=== PATIENT | male | born 1980 | race Caucasian/White ===

== ENCOUNTER 2019-10-21 12:12 | Emergency (ER) | payer BC ==
[~2019-10-21] VITALS: Ht 188 cm; Wt 106.6 kg
[2019-10-21] MEDS ORDERED: HYDR50TA62 PO (12:32)
[2019-10-21] MEDS ORDERED: PROZOSIN (12:32)
[2019-10-21] MEDS ORDERED: QUET300T5 PO (12:32)
[2019-10-21] MEDS ORDERED: SUVO10TA PO (12:32)
[2019-10-21] MEDS ORDERED: ACET-73 PO (12:32)
[2019-10-21] MEDS ORDERED: QUET300T2 PO (12:32)
[2019-10-21] MEDS ORDERED: DOXE50CA4 PO (12:32)
[2019-10-21] MEDS ORDERED: TRAZ300T2 PO (12:32)
[2019-10-21] MEDS ORDERED: IV NORMAL SALINE 1000 ML BAG IV ONE ×2 (13:15→16:30)
[2019-10-21] MEDS ORDERED: PANTOPRAZOLE SODIUM 40 MG VIAL IV ONE (13:15)
[2019-10-21] MEDS ORDERED: PANTOPRAZOLE SODIUM 40 MG VIAL ONE (13:19)
--- NOTE | 2019-10-21 14:02 | NUR ---
PATIENT WAS SEEN BY MD. PLACED ON A MONITOR. PATIENT IS A/A/O X3 IN NO DISTRESS. IV PLACED, NS STARTED. COVID SWAB DONE. PATIENT HAS MILD INTERMITTENT COUGH.
[2019-10-21 14:27] LABS: BASOPHILS % (AUTO) 0.3 % (0.0-2.0); EOSINOPHILS # (AUTO) 0.1 K/uL (0.0-0.7); EOSINOPHILS % (AUTO) 1.4 % (0.0-7.0); HEMATOCRIT 38.6 % (36.7-47.1); LYMPHOCYTES # (AUTO) 0.9 K/uL (20.0-40.0); LYMPHOCYTES % (AUTO) 11.5 % (20.5-51.5); MEAN CORPUSCULAR HEMOGLOBIN 29.7 uug (23.8-33.4); MEAN CORPUSCULAR HGB CONC 34 g/dL (32.5-36.3); MEAN CORPUSCULAR VOLUME 88.4 fL (73.0-96.2); MONOCYTES # (AUTO) 0.6 K/uL (2.0-10.0); NEUTROPHILS # (AUTO) 6.5 K/uL (1.8-8.9); NEUTROPHILS % (AUTO) 79.8 % (38.5-71.5); PLATELET COUNT (AUTO) 133 K/uL (152-348); RED BLOOD CELL COUNT(AUTO) 4.37 MIL/uL (4.06-5.63); WHITE BLOOD COUNT (AUTO) 8.2 K/uL (3.6-10.2)
[2019-10-21 14:33] LABS: CREATININE 0.9 mg/dL (0.6-1.3); POTASSIUM 3.2 mmol/L (3.5-5.1)
[2019-10-21 14:38] LABS: BILIRUBIN,DIRECT 0.1 mg/dL (0.0-0.2); BILIRUBIN,TOTAL 0.5 mg/dL (0.2-1.0); TOTAL PROTEIN, SERUM 7.8 g/dL (6.4-8.2)
[2019-10-21] MEDS ORDERED: POTASSIUM BICARBONATE/CIT AC 25 MEQ TABLET.EFF PO ONE (16:00)
[2019-10-21] MEDS ORDERED: MAG HYDROX/AL HYDROX/SIMETH 30 ML LIQUID UDC PO ONE (16:30)
[2019-10-21] MEDS ORDERED: POTASSIUM BICARBONATE/CIT AC 25 MEQ TABLET.EFF ONE (16:36)
[2019-10-21] MEDS ORDERED: MAG HYDROX/AL HYDROX/SIMETH 30 ML LIQUID UDC ONE (16:36)
[2019-10-21] MEDS ORDERED: IOHEXOL 350 100 ML INFUS..BTL ONE (16:40)
[2019-10-21] MEDS ORDERED: IV NORMAL SALINE 250 ML IV ONE (16:40)
[2019-10-21] MEDS ORDERED: SWABABLE VALVE TRANSFER SET EA MC ONE (16:40)
--- NOTE | 2019-10-21 17:46 | NUR ---
PATIENT STATES HIS STOMACH FEELS OK NOW...
--- NOTE | 2019-10-21 18:00 | NUR ---
LATE ENTRY: SECOND IV PLACED IN AC, 20 G FOR IV CONTRAST. IV STOP TIMES ARE 1403 FOR FIRST NS BAG AND 1730 FOR SECOND NS BAG. PROTONIX STOP TIME IS 1403.
--- NOTE | 2019-10-21 18:01 | NUR ---
DR CASTRO AT BEDSIDE SPEAKING TO PATIENT ABOUT TEST RESULTS AND PLAN OF CARE...
--- NOTE | 2019-10-21 18:04 | NUR ---
IV removed. Catheter intact and site benign. Pressure and 4x4 gauze applied to site. No bleeding noted.
--- NOTE | 2019-10-21 18:24 | NUR ---
DC, RX AND F/U INSTRUCTIONS GIVEN AND EXPLAINED TO PATIENT WHO STATES HE UNDERSTANDS ALL INSTRUCTIONS
== END 2019-10-21 18:27 | disposition home or self-care (01) ==
LOC: ER 12:12
DX: R07.9 Chest pain, unspecified (principal); Z20.828 Contact with and (suspected) exposure to other viral communicable diseases; R00.0 Tachycardia, unspecified; R79.89 Other specified abnormal findings of blood chemistry; E87.6 Hypokalemia; I25.2 Old myocardial infarction; I10 Essential (primary) hypertension; Z87.11 Personal history of peptic ulcer disease; M10.9 Gout, unspecified; F10.21 Alcohol dependence, in remission
CPT/HCPCS: 71045; 71275; 80048; 80076; 83690; 83735; 84484 ×2; 85025; 85379; 85730; 86850; 86900; 86901; 87040 ×2; 93005 ×2; 96374; 99285; C9113; Q9967; U0003; 36415; 70030-TC; A4663; J7030; J7050